=== PATIENT | male | born 2000 | race Caucasian/White ===

== ENCOUNTER 2022-05-16 14:16 | Emergency (ER) | payer OTHER ==
[~2022-05-16] VITALS: Ht 172.7 cm; Wt 75.0 kg
[2022-05-16] MEDS ORDERED: IBUPROFEN 800 MG TAB PO ONE (17:05)
[2022-05-16] MEDS ORDERED: IBUP80TA PO (17:59)
[2022-05-16 18:17] VITALS: BP 133/86
== END 2022-05-16 18:32 | disposition home or self-care (01) ==
LOC: M ED 14:16
DX: S42.001A Fracture of unspecified part of right clavicle, initial encounter for closed fracture (principal); W00.0XXA Fall on same level due to ice and snow, initial encounter; Y93.H1 Activity, digging, shoveling and raking; F17.200 Nicotine dependence, unspecified, uncomplicated; Z88.8 Allergy status to other drugs, medicaments and biological substances